=== PATIENT | female | born 1990 | race American Indian/Alaskan Native ===

== ENCOUNTER 2016-11-15 11:35 | Emergency (ER) | payer SELFPAY ==
[2016-11-15] MEDS ORDERED: Sodium Chloride 0.9% 1,000 ML IV STA (12:29)
--- NOTE | 2016-11-15 12:29 | ED PDOC ---
HPI: Abdomen Time Seen by Provider: 11/15/16 11:38 Chief Complaint (Nursing): Abdominal Pain Chief Complaint (Provider): Suprapubic abdominal pain, sharp, intermittent, vaginal bleeding History Per: Patient History/Exam Limitations: no limitations Onset/Duration Of Symptoms: Days (Began yesterday ) Outside of [place] travel?: No Additional Complaint(s): Pt reports 2 previous elective abortions. Pt states her last menses was end of october. Pt states she is having stronger cramps than normal and heavier bleeding. Reports being sexually active and state she does not always use protection. Past Medical History Reviewed: Historical Data, Nursing Documentation, Vital Signs Vital Signs: Last Vital Signs Temp 98.6 F 11/15/16 16:03 Pulse 86 11/15/16 16:03 Resp 16 11/15/16 16:03 BP 119/63 11/15/16 16:03 Pulse Ox 100 11/15/16 16:03 - Medical History PMH: No Chronic Diseases - Family History Family History: States: Unknown Family Hx - Living Arrangements Living Arrangements: With Family - Social History Current smoker - smoking cessation education provided: No Alcohol: Occasional Drugs: Denies - Home Medications Home Medications: Ambulatory Orders Medication Instructions Recorded oxyCODONE/Acetaminophen [Percocet 1 ea PO Q6H PRN #15 tab 05/13/16 5/325 mg Tab] - Allergies Allergies/Adverse Reactions: Allergies Allergy/AdvReac Type Severity Reaction Status Date / Time No Known Allergies Allergy Verified 11/15/16 11:48 Review of Systems ROS Statement: Except As Marked, All Systems Reviewed And Found Negative Genitourinary Female: Positive for: Vaginal Bleeding, Pelvic Pain Physical Exam - Reviewed Nursing Documentation Reviewed: Yes Vital Signs Reviewed: Yes - Physical Exam Appears: Positive for: Well, Non-toxic, No Acute Distress Head Exam: Positive for: ATRAUMATIC, NORMAL INSPECTION, NORMOCEPHALIC Skin: Positive for: Normal Color, Warm, DRY Eye Exam: Positive for: Normal appearance ENT: Positive for: Normal ENT Inspection Neck: Positive for: Normal, Painless ROM Cardiovascular/Chest: Positive for: Regular Rate, Rhythm Respiratory: Positive for: CNT, Normal Breath Sounds Gastrointestinal/Abdominal: Positive for: Normal Exam, Bowel Sounds, Soft. Negative for: Tenderness Pelvic Exam: Positive for: External Exam Normal ((+) active bleeding seen ) Back: Positive for: Normal Inspection Extremity: Positive for: Normal ROM Neurologic/Psych: Positive for: Alert, Oriented - Laboratory Results Result Diagrams: 11/15/16 16:18 11/15/16 12:35 - ECG O2 Sat by Pulse Oximetry: 96 Pulse Ox Interpretation: Normal Medical Decision Making Medical Decision Makin - Discussed with Dr. Beth. States is she is not having symptoms, not actively bleeding on pelvic exam and vitals stable she cane be discharge. 1730 - Small amount of blood seen in cervical vault, none seen coming out of the os. Discussed importance of f/u with [facility] for to make sure it is not ectopic or retained products. Pt to return for any symptoms of anemia that where discussed with patient. Disposition - Clinical Impression Clinical Impression: Spontaneous miscarriage - Patient ED Disposition Is Patient to be Admitted: No Counseled Patient/Family Regarding: Diagnosis, Need For Followup - Disposition Referrals: [facility] [Outside] [facility] [Outside] Disposition: Routine/Home Disposition Time: 17:59 Condition: GOOD Additional Instructions: Please follow-up in 3 days with [facility]. Please return for weakness, dizziness, palpitations, etc. Instructions: Spontaneous Miscarriage (ED)
[2016-11-15 12:46] LABS: HEMATOCRIT 29.8 % (34.0-47.0); MEAN CELL VOLUME 80.2 fl (81.0-99.0); MEAN CORPUSCULAR HEMOGLOBIN 25.1 pg (27.0-31.0); MEAN CORPUSCULAR HGB CONC 31.3 g/dL (33.0-37.0); RED CELL DISTRIBUTION WIDTH 15.6 % (11.5-14.5); WHITE BLOOD COUNT 8.5 K/uL (4.8-10.8)
[2016-11-15 12:55] LABS: ALB/GLOB RATIO 1.3 (1.0-2.1); ALKALINE PHOSPHATASE 45 U/L (38-126); ALT/SGPT 29 U/L (9-52); AST/SGOT 18 U/L (14-36); BILIRUBIN,TOTAL 0.3 mg/dl (0.2-1.3); BLOOD UREA NITROGEN 20 mg/dl (7-17); CALCIUM 9.7 mg/dL (8.4-10.2); CARBON DIOXIDE 24 mmol/L (22-30); CHLORIDE 107 mmol/L (98-107); GFR AFRICAN-AMERICAN > 60; GLUCOSE,RANDOM 100 mg/dL (65-105); POTASSIUM 4.3 MMOL/L (3.6-5.0); SODIUM 138 mmol/l (132-148); TOTAL PROTEIN 7.2 G/DL (6.3-8.2)
[2016-11-15 14:32] LABS: PARTIAL THROMBOPLASTIN TIME 28.2 SECONDS (23.3-32.5)
--- NOTE | 2016-11-15 15:16 | US ---
PROCEDURE: OB Pelvic Ultrasound Transabdominal sonographic evaluation of the pelvis performed HISTORY: Vaginal bleeding in COMPARISON: None available. FINDINGS: UTERUS: Gestational sac: Not detected Heart rate: Not detected. age (Ultrasound estimated): Not detected Uterus measures 11.3 x 4.1 x 6.0 cm. Normal in size and appearance. Endometrium measures approximately 5 mm. CERVIX: Small amount of fluid seen within the endocervical canal RIGHT OVARY: Measures approximately 2.8 x 1.4 x 2.3 cm. No mass lesion. Normal flow. LEFT OVARY: Measures approximately 2.5 x 2.0 x 3.0. Normal flow. No masses seen. FREE FLUID: No gross free fluid OTHER FINDINGS: None. IMPRESSION: The No evidence of intrauterine gestation. There is small amount of fluid within the endocervical canal Findings could represent sequela of spontaneous with a small amount however ectopic cannot be excluded if serum beta HCG is positive. Recommend followup serial serum beta HCG and serial ultrasound for further evaluation.
[2016-11-15 16:03] VITALS: RESP 16
[2016-11-15 16:25] LABS: HEMATOCRIT 26.5 % (34.0-47.0); MEAN CORPUSCULAR HEMOGLOBIN 25.3 pg (27.0-31.0); MEAN CORPUSCULAR HGB CONC 31.7 g/dL (33.0-37.0); RED CELL DISTRIBUTION WIDTH 16.1 % (11.5-14.5); WHITE BLOOD COUNT 8.3 K/uL (4.8-10.8)
[2016-11-15 17:57] VITALS: BP 117/50; PULSE 87; TEMP 98.2
[2016-11-15 17:59] VITALS: O2SAT 96
== END 2016-11-15 18:25 | disposition home or self-care (01) ==
LOC: H.ER 11:35
DX: O03.9 Complete or unspecified spontaneous abortion without complication (principal); O46.90 Antepartum hemorrhage, unspecified, unspecified trimester
CPT/HCPCS: 76815; 80053; 81025; 84702; 85027; 85610; 85730; 86850; 86900; 96361; 96374; 99283; J2270; J7040